=== PATIENT | male | born 1965 | race Caucasian/White ===

== ENCOUNTER 2020-09-02 16:21 | Observation (INO) | payer BC ==
[~2020-09-02] VITALS: Ht 182.8 cm; Wt 87.5 kg
[2020-09-02 16:33] VITALS: BP 171/95
[2020-09-02 16:58] LABS: BASO % 0.5 % (0.0-1.0); EOS % 0.3 % (1.0-4.0); HEMATOCRIT 37.9 % (42.0-52.0); LYMPH # 0.8 10*3/uL (1.3-4.4); LYMPH % 9.7 % (27.0-41.0); MEAN CELL VOLUME 101.6 fl (80.0-94.0); MEAN CORPUSCULAR HGB 36.5 pg (27.0-31.0); MEAN CORPUSCULAR HGB CONC 35.9 g/dl (33.0-37.0); MEAN PLATELET VOLUME 8.7 fl (9.6-12.3); MONO # 0.6 10*3/uL (0.1-1.0); MONO % 7.3 % (3.0-9.0); NEUT # 7.1 10*3/uL (2.3-7.9); NEUT % 81.7 % (47.0-73.0); PLATELET COUNT AUTOMATED 189 10*3/uL (130-400); RED BLOOD COUNT 3.73 10*6/uL (4.50-5.90); RED CELL DISTRI WIDTH 13.2 % (0-14.5); WHITE BLOOD COUNT 8.6 10*3/uL (4.8-10.8)
[2020-09-02 17:09] LABS: ACT PARTIAL THROMBO TIME 25.9 SECONDS (20.0-32.1); INTERNATIONAL NORM RATIO 1.1 (2.0-3.5)
[2020-09-02 17:13] LABS: ALBUMIN 3.5 gm/dl (3.1-4.5); ALKALINE PHOSPHATASE 48 U/L (45-117); BUN 8 mg/dl (7-24); CHLORIDE 97 mmol/L (98-107); CREATININE 1.04 mg/dL (0.70-1.30); LIPASE 137 U/L (73-393); SGOT/AST 77 IU/L (3-35); SGPT/ALT 36 U/L (12-78); SODIUM 134 mmol/L (136-145)
[2020-09-02 17:16] LABS: ETHYL ALCOHOL < 3.0 mg/dl (<3); POTASSIUM 2.4 mmol/L (3.5-5.1); TROPONIN I < 0.015 ng/ml (<0.045)
[2020-09-02] MEDS ORDERED: 'CLONIDINE0.1 MG PO (17:19)
[2020-09-02] MEDS ORDERED: HYDROCODONE-AC1 EAC2 PO (17:20)
[2020-09-02] MEDS ORDERED: NEURONTIN300 MG PO (17:20)
[2020-09-02] MEDS ORDERED: SPIRONOLACTONE100 MG PO (17:20)
[2020-09-02] MEDS ORDERED: ROSUVASTATIN CA10 MG PO (17:20)
[2020-09-02] MEDS ORDERED: ALLOPURINOL300 MG PO (17:20)
[2020-09-02] MEDS ORDERED: LISINOPRIL20 MG PO (17:20)
[2020-09-02 17:25] LABS: URINE AMPHETAMINES < 1000 (1000ng/ml); URINE BARBITURATES < 200 (200ng/ml); URINE BENZODIAZEPINES < 200 (200ng/ml); URINE CANNABINOIDS (THC) < 50 (50ng/ml); URINE COCAINE < 300 (300ng/ml); URINE METHADONE < 300 (300ng/ml); URINE OPIATES < 300 (300ng/ml)
[2020-09-02 17:26] LABS: URINE PHENCYCLIDINE < 25 (25ng/ml)
[2020-09-02 17:57] VITALS: BP 147/93
[2020-09-02 19:30] VITALS: BP 162/108
[2020-09-02 23:12] LABS: BILIRUBIN Negative (Negative); BLOOD Negative (Negative); CLARITY Clear (Clear); COLOR Yellow (Yellow); GLUCOSE Negative (Negative); KETONE Trace (Negative); LEUKO ESTERASE Negative (Negative); NITRITE Negative (Negative); PH 6.5 (4.5-8.0)
[2020-09-02 23:18] LABS: ALBUMIN 3.1 gm/dl (3.1-4.5); BUN 8 mg/dl (7-24); CHLORIDE 99 mmol/L (98-107); CREATININE 0.78 mg/dL (0.70-1.30); POTASSIUM 2.7 mmol/L (3.5-5.1); SODIUM 137 mmol/L (136-145)
[2020-09-02 23:21] LABS: URINE CREATININE RANDOM 79.7 mg/dL
[2020-09-03 05:32] LABS: BUN 7 mg/dl (7-24); CHLORIDE 100 mmol/L (98-107); CHOLESTEROL 200 mg/dL (<200); CREATININE 0.72 mg/dL (0.70-1.30); POTASSIUM 2.8 mmol/L (3.5-5.1); SGOT/AST 55 IU/L (3-35); SGPT/ALT 28 U/L (12-78); SODIUM 138 mmol/L (136-145); TRIGLYCERIDES 80 mg/dl (<150); VLDL CHOLESTEROL 16 mg/dL (6-40)
[2020-09-03 05:39] LABS: ALKALINE PHOSPHATASE 38 U/L (45-117); FREE T4 0.95 ng/dl (0.76-1.46); HDL CHOLESTEROL 89 mg/dl (40-60); LDL CHOLESTEROL 95 mg/dL (9-159); TOTAL PROTEIN 6.7 gm/dL (6.4-8.2)
[2020-09-03 07:14] LABS: VITAMIN D, 25-HYDROXY 13.5 ng/mL (30-100)
[2020-09-03 07:16] LABS: BASO # 0.1 10*3/uL (0.0-0.1); BASO % 0.8 % (0.0-1.0); EOS # 0.2 10*3/uL (0.0-0.4); EOS % 2.3 % (1.0-4.0); HEMATOCRIT 36.2 % (42.0-52.0); LYMPH # 1.9 10*3/uL (1.3-4.4); LYMPH % 28.9 % (27.0-41.0); MEAN CORPUSCULAR HGB 35.9 pg (27.0-31.0); MEAN CORPUSCULAR HGB CONC 33.7 g/dl (33.0-37.0); MEAN PLATELET VOLUME 9.4 fl (9.6-12.3); MONO # 0.7 10*3/uL (0.1-1.0); MONO % 10.5 % (3.0-9.0); NEUT # 3.7 10*3/uL (2.3-7.9); NEUT % 57.2 % (47.0-73.0); PLATELET COUNT AUTOMATED 186 10*3/uL (130-400); RED CELL DISTRI WIDTH 13.9 % (0-14.5); WHITE BLOOD COUNT 6.4 10*3/uL (4.8-10.8)
[2020-09-03 07:24] LABS: MEAN CELL VOLUME 106.5 fl (80.0-94.0)
[2020-09-03 11:26] VITALS: BP 165/90
[2020-09-03 12:36] VITALS: BP 173/103
[2020-09-03 12:50] VITALS: BP 166/84
[2020-09-03 16:00] VITALS: BP 135/76
[2020-09-03 16:30] LABS: BUN 5 mg/dl (7-24); CHLORIDE 102 mmol/L (98-107); CREATININE 0.83 mg/dL (0.70-1.30); POTASSIUM 3.4 mmol/L (3.5-5.1); SODIUM 137 mmol/L (136-145)
[2020-09-03 20:00] VITALS: BP 177/96
[2020-09-04] VITALS: BP 157/86
[2020-09-04 06:38] LABS: BASO # 0.1 10*3/uL (0.0-0.1); BASO % 1.2 % (0.0-1.0); EOS # 0.2 10*3/uL (0.0-0.4); HEMATOCRIT 38.4 % (42.0-52.0); LYMPH # 2.6 10*3/uL (1.3-4.4); LYMPH % 33.7 % (27.0-41.0); MEAN CELL VOLUME 107.6 fl (80.0-94.0); MEAN CORPUSCULAR HGB 36.7 pg (27.0-31.0); MEAN CORPUSCULAR HGB CONC 34.1 g/dl (33.0-37.0); MEAN PLATELET VOLUME 9.2 fl (9.6-12.3); MONO # 0.8 10*3/uL (0.1-1.0); NEUT # 3.8 10*3/uL (2.3-7.9); NEUT % 50.7 % (47.0-73.0); PLATELET COUNT AUTOMATED 212 10*3/uL (130-400); RED BLOOD COUNT 3.57 10*6/uL (4.50-5.90); RED CELL DISTRI WIDTH 13.6 % (0-14.5); WHITE BLOOD COUNT 7.6 10*3/uL (4.8-10.8)
[2020-09-04 07:04] LABS: ALBUMIN 3.2 gm/dl (3.1-4.5); ALKALINE PHOSPHATASE 43 U/L (45-117); BUN 4 mg/dl (7-24); CHLORIDE 103 mmol/L (98-107); CREATININE 0.72 mg/dL (0.70-1.30); POTASSIUM 3.8 mmol/L (3.5-5.1); SGOT/AST 50 IU/L (3-35); SGPT/ALT 31 U/L (12-78); SODIUM 139 mmol/L (136-145); TOTAL PROTEIN 7.6 gm/dL (6.4-8.2)
[2020-09-04 08:00] VITALS: BP 170/90
[2020-09-04] MEDS ORDERED: NATURE'S BLEND F1 MG PO (08:41)
[2020-09-04] MEDS ORDERED: VITAMIN B-1100 M1 PO (08:41)
[2020-09-04] MEDS ORDERED: VITAMIN D350 MC2 PO (08:41)
[2020-09-04] MEDS ORDERED: K-TAB10 MEQ PO (08:46)
[2020-09-04] MEDS ORDERED: MAGNESIUM OXID400 MG PO (08:46)
== END 2020-09-04 11:19 | disposition home or self-care (01) ==
LOC: ED 16:21 → EDHOLD 18:05 → 5E 09-03 10:55
PROVIDERS: Emergency Medicine; Internal Medicine; Internal Medicine Nephrology; ADMIT Internal Medicine; ATTEND Internal Medicine
DX: E83.42 Hypomagnesemia (principal); E87.6 Hypokalemia; E83.51 Hypocalcemia; E87.1 Hypo-osmolality and hyponatremia; E83.39 Other disorders of phosphorus metabolism; D53.9 Nutritional anemia, unspecified; I10 Essential (primary) hypertension; G89.29 Other chronic pain; R74.01 Elevation of levels of liver transaminase levels; R79.89 Other specified abnormal findings of blood chemistry; R00.0 Tachycardia, unspecified; R06.02 Shortness of breath; E55.9 Vitamin D deficiency, unspecified; E53.8 Deficiency of other specified B group vitamins; R73.9 Hyperglycemia, unspecified; Z79.899 Other long term (current) drug therapy